=== PATIENT | male | born 1930 | race American Indian/Alaskan Native ===

== ENCOUNTER 2016-05-09 15:21 | Emergency (ER) | payer OTHER ==
[~2016-05-09] VITALS: Ht 182.9 cm; Wt 96.2 kg
[2016-05-09 15:26] VITALS: BP 153/89
--- NOTE | 2016-05-09 16:16 | NUR ---
PT WHEELCHAIR ASSISTED TO BED 6 AT THIS TIME.
--- NOTE | 2016-05-09 16:17 | NUR ---
86/M BIB FAMILY C/O LEFT WRIST LACERATION x 30 MINUTES AGO. 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 PT PRESENT TO ER WITH PRESSURE DRESSING. BLEEDING UNDER CONTROL. PT DENIES N/V/D; SKIN IS PINK/WARM/DRY; AAOX4 WITH EVEN AND STEADY GAIT; LUNGS CLEAR BL; HR EVEN AND REGULAR; PT DENIES ANY FEVER, CP, SOB, OR COUGH AT THIS TIME; PATIENT STATES PAIN OF 7/10 AT THIS TIME; PATIENT POSITIONED FOR COMFORT; HOB ELEVATED; BEDRAILS UP X2; BED DOWN. ER MD MADE AWARE OF PT STATUS.
--- NOTE | 2016-05-09 16:19 | NUR ---
X RAY AT BEDSIDE
[2016-05-09] MEDS ORDERED: LIDOCAINE 1% 500 MG/50 ML VIAL INJ ONE (16:50)
[2016-05-09] MEDS ORDERED: LIDOCAINE 1% ED 50 ML ONE (16:55)
--- NOTE | 2016-05-09 17:33 | NUR ---
Patient discharged with BP 162/65;NO S/S OF HEADACHE OR DIZZINESS ;MD DR VALDEZ NOTIFIED,MD AWARE. Written and verbal after care instructions given and explained. Patient alert, oriented and verbalized understanding of instructions. Ambulatory with steady gait. All questions addressed prior to discharge. ID band removed. Patient advised to follow up with PMD. Rx of BACTRIM & MOTRIN given. Patient educated on indication of medication including possible reaction and side effects. Opportunity to ask questions provided and answered.
[2016-05-09 17:37] VITALS: BP 161/87
== END 2016-05-09 17:33 | disposition home or self-care (01) ==
LOC: MED 15:21
DX: S61.512A Laceration without foreign body of left wrist, initial encounter (principal); I10 Essential (primary) hypertension; E11.9 Type 2 diabetes mellitus without complications; W45.8XXA Other foreign body or object entering through skin, initial encounter; Y93.89 Activity, other specified; Y92.098 Other place in other non-institutional residence as the place of occurrence of the external cause; Y99.8 Other external cause status
CPT/HCPCS: 12002; 73110; 82948; 90471; 90715; 99284; J2001; Q0092

== ENCOUNTER 2016-05-16 09:40 | Emergency (ER) | payer OTHER ==
[~2016-05-16] VITALS: Ht 179.1 cm; Wt 94.9 kg
[2016-05-16 09:45] VITALS: BP 155/87
--- NOTE | 2016-05-16 09:51 | NUR ---
Patient to bed 7 at this time.
--- NOTE | 2016-05-16 09:56 | NUR ---
PT BIB SELF C/O SUTURE REMOVAL TO LEFT WRIST; PT STATES HAD SUTURES DONE IN [facility] ER ON 05/09/16.WOUND IS ON HEALING PROCESS NO REDNESS/DISCHARGES NOTED;HX OF HTN AND DM;DENIES NUMBNESS/ TINGLING SENSATION ON LEFT ARM;DENIES CP/SOB/N/V/F.AAOX4;NO ACUTE DISTRESS NOTED AT THIS TIME;HOB ELEVATED;NEEDS ATTENDED;SAFETY MEASURES DONE;MD MADE AWARE OF PT'S CONDITION.
[2016-05-16 10:05] VITALS: BP 155/87
--- NOTE | 2016-05-16 10:05 | NUR ---
Patient discharged with v/s stable. Written and verbal after care instructions given and explained. Patient verbalized understanding. Ambulatory with steady gait. All questions addressed prior to discharge. Advised to follow up with PMD.
== END 2016-05-16 10:05 | disposition home or self-care (01) ==
LOC: MED 09:40
DX: Z48.01 Encounter for change or removal of surgical wound dressing (principal); E11.9 Type 2 diabetes mellitus without complications; I10 Essential (primary) hypertension

== ENCOUNTER 2016-05-20 08:41 | Emergency (ER) | payer OTHER ==
[~2016-05-20] VITALS: Ht 182.9 cm; Wt 94.8 kg
[2016-05-20 08:44] VITALS: BP 163/78
--- NOTE | 2016-05-20 08:44 | NUR ---
PATIENT PRESENTS TO ED FOR SUTURE REMOVAL ON HIS LEFT FOREARM . PT STATES SUTURES WERE PLACED ON 05/09/16 . DENIES N/V/D; SKIN IS PINK/WARM/DRY; AAOX4 WITH EVEN AND STEADY GAIT; LUNGS CLEAR BL; HR EVEN AND REGULAR; PT DENIES ANY FEVER, CP, SOB, OR COUGH AT THIS TIME; PATIENT STATES PAIN OF 0/10 AT THIS TIME; VSS; PATIENT POSITIONED FOR COMFORT; HOB ELEVATED; BEDRAILS UP X2; BED DOWN. ER MD MADE AWARE OF PT STATUS.
--- NOTE | 2016-05-20 09:53 | NUR ---
Patient ambualted to bed 8.
--- NOTE | 2016-05-20 10:18 | NUR ---
DR MLILER AT BEDSIDE, REMOVING SUTRURES
[2016-05-20 10:23] VITALS: BP 163/78
== END 2016-05-20 10:24 | disposition home or self-care (01) ==
LOC: MED 08:41
DX: S61.512D Laceration without foreign body of left wrist, subsequent encounter (principal); X58.XXXD Exposure to other specified factors, subsequent encounter
CPT/HCPCS: 82948; 99281; 99282

== ENCOUNTER 2020-07-07 04:50 | Emergency (ER) | payer OTHER ==
[~2020-07-07] VITALS: Ht 182.9 cm; Wt 90.7 kg
[2020-07-07 04:51] VITALS: BP 168/94
--- NOTE | 2020-07-07 04:51 | NUR ---
89/M CAR[facility] FROM HOME C/O ALOC - LAST SEEN NORMAL X 1 HR AGO . FBS: 139. PT AOX3-4, WITH MOMENTS OF CONFUSION, PERRL, ABLE TO MOVE EXTREMITIES. PMH: RECENT BONE CANCER DX , HTN, DM , PROSTATE AX: SULFA Addendum: 07/07/20 at 0530 by MARAI M PT WITH G 18 ON LEFT FA INSERTED ON AMBULANCE
--- NOTE | 2020-07-07 04:53 | NUR ---
BIBA TO ER BED 2
--- NOTE | 2020-07-07 05:31 | NUR ---
BLOOD SAMPLE COLLECTED AND SENT TO LAB
--- NOTE | 2020-07-07 05:36 | NUR ---
PT TAKEN TO CT VIA DOC
[2020-07-07 05:48] LABS: BASOPHILS % (AUTO) 0.7 % (0.0-2.0); EOSINOPHILS # (AUTO) 0.1 K/uL (0-0.4); EOSINOPHILS % (AUTO) 1.3 % (0.0-4.0); HEMATOCRIT 27.8 % (36-52); HEMOGLOBIN 9.3 g/dL (12.0-18.0); LYMPHOCYTES # (AUTO) 2.2 K/uL (2.0-11.5); MEAN CORPUSCULAR HEMOGLOBIN 30 pg (27-31); MEAN CORPUSCULAR HGB CONC 34 g/dL (33-37); MEAN CORPUSCULAR VOLUME 90.4 fL (80-94); MONOCYTES # (AUTO) 0.3 K/uL (0.8-1.0); MONOCYTES % (AUTO) 5.1 % (1.7-9.3); NEUTROPHILS # (AUTO) 2.6 K/uL (1.8-7.7); NEUTROPHILS % (AUTO) 50.9 % (42.2-75.2); PLATELET COUNT (AUTO) 141 K/uL (140-450); RED BLOOD CELL COUNT(AUTO) 3.07 MIL/uL (4.20-6.10); RED CELL DISTRIBUTION WIDTH 14.9 % (11.6-13.7); WHITE BLOOD COUNT (AUTO) 5.2 K/uL (4.8-10.8)
--- NOTE | 2020-07-07 05:56 | NUR ---
PT BACK FROM CT
--- NOTE | 2020-07-07 06:03 | NUR ---
URINE AND BLOOD CULTURE SAMPLE COLLECTED AND SENT TO LAB
[2020-07-07 06:05] LABS: PROTHROMBIN TIME 10.1 secs (10.8-13.4)
[2020-07-07 06:06] LABS: ANION GAP 13.3 (8-16); CARBON DIOXIDE 26.1 mmol/L (21-32); CHLORIDE 94 mmol/L (98-107); CREATININE 1.1 mg/dL (0.6-1.3); GLUCOSE 123 mg/dL (74-106); POTASSIUM 4.4 mmol/L (3.5-5.1); SODIUM SERUM 129 mmol/L (136-145); UREA NITROGEN, BLOOD 20 mg/dL (7-18)
[2020-07-07 06:07] LABS: APPEARANCE,URINE CLEAR (CLEAR); BILIRUBIN,URINE NEGATIVE (NEGATIVE); BLOOD, URINE 1+ (NEGATIVE); COLOR,URINE YELLOW (YELLOW); LEUKOCYTE ESTERASE ,URINE NEGATIVE (NEGATIVE); NITRITE, URINE NEGATIVE (NEGATIVE); UGLUCOSE TRACE (NEGATIVE)
[2020-07-07 06:35] LABS: ALBUMIN 2.6 g/dL (3.4-5.0); ASPARTATE AMINOTRANSFERASE 23 U/L (15-37); TOTAL BILIRUBIN 0.4 mg/dL (0.0-1.0)
[2020-07-07 07:18] LABS: RBC,URINE 0-5 /HPF (0-5)
[2020-07-07 07:19] LABS: WBC,URINE 0-5 /HPF (0-5)
[2020-07-07] MEDS ORDERED: PIPERACILLIN/TAZOBACTAM 3.375 GM in DEXTROSE 5% 50 ML IV ONE (08:20)
[2020-07-07] MEDS ORDERED: ASPIRIN 325 MG TAB PO ONE (08:20)
[2020-07-07] MEDS ORDERED: NACL 0.9% 1,000 ML IV ONE (08:20)
[2020-07-07] MEDS ORDERED: PIPERACILLIN/TAZOBACTAM 3.375 GM VIAL IV ONE (08:28)
--- NOTE | 2020-07-07 10:12 | NUR ---
TPatient to be transferred to [facility]. Is being transferred due to HIGHER LEVEL OF CARE. Receiving facility has accepting physician and available space. ER physician has signed transfer form. Patient or responsible green party has agreed to transfer and signed form. Patient belongings inventoried and will be sent with patient. Copy of nursing notes, lab reports, EKG, Physicians Orders and X-rays to be sent with patient. Report called to MAGDIEL CARUSO at receiving facility. [facility] has been called for transfer. ETA is 1130.
--- NOTE | 2020-07-07 11:22 | NUR ---
[facility] at bedside to transport the patient to [facility].
[2020-07-07 11:39] VITALS: BP 109/63
--- NOTE | 2020-07-08 19:22 | NUR ---
LATE ENTRY-- 0.9% NS BOLUS DISCONTINUED AT 0940 AND ZOSYN IVPB DISCONTINUED AT 0930
== END 2020-07-07 11:22 | disposition home or self-care (01) ==
LOC: MED 04:50
DX: R41.82 Altered mental status, unspecified (principal); Z20.822 Contact with and (suspected) exposure to COVID-19; D64.9 Anemia, unspecified; R74.02 Elevation of levels of lactic acid dehydrogenase [LDH]
CPT/HCPCS: 36415; 70450; 71045; 72128; 72131; 80053; 81001; 82550; 82553; 83605; 83874; 83880; 84484; 85025; 85610; 85730; 87040; 87426; 93005; 96361; 96365; 99285; J2543; J7030; J7060